=== PATIENT | female | born 1945 | race Caucasian/White ===

== ENCOUNTER 2024-04-25 14:41 | Emergency (ER) | payer OTHER, SELFPAY ==
[2024-04-25 14:48] VITALS: BP 147/96
[2024-04-25 15:18] LABS: % Basophils 0.9 % (0-2); % Eosinophils 0.9 % (0-6); % Immature Granulocytes 0.2 % (0-0.5); % Lymphocytes 33.6 % (20.5-51.1); % Monocytes 8.1 % (1.7-9.3); % Neutrophils 56.3 % (42.2-75.2); Absolute Basophils 0.1 10^3/uL (0-0.2); Absolute Eosinophils 0.1 10^3/uL (0-0.7); Absolute Lymphocytes 2.2 10^3/uL (1.2-3.4); Absolute Monocytes 0.5 10^3/uL (0.1-0.6); Absolute Neutrophils 3.7 10^3/uL (1.4-6.5); Hematocrit 40.2 % (37.0-47.0); Hemoglobin 14.6 g/dL (12.0-16.0); Mean Corp Hgb Conc. 36.3 g/dL (33.0-37.0); Mean Corpuscular Hgb 33.8 pg (27.0-31.0); Mean Corpuscular Volume 93.1 fL (81.0-99.0); Mean Platelet Volume 10.3 fL (7.4-10.4); Nucleated Red Blood Cells % 0 %; Platelet Count 159 10^3/uL (130-400); Red Blood Cell Count 4.32 10^6/uL (4.20-5.40); White Blood Cell Count 6.5 10^3/uL (4.8-10.8)
[2024-04-25 15:29] LABS: ALT (SGPT) 23 U/L (0-35); AST (SGOT) 32 U/L (14-36); Alkaline Phosphatase 73 U/L (38-126); Blood Urea Nitrogen 22 mg/dl (7-17); Calcium 10.8 mg/dl (8.4-10.2); Carbon Dioxide 26 mmol/L (22-30); Chloride 103 mmol/L (98-107); Glucose 143 mg/dl (70-99); Sodium 138 mmol/L (135-145); Total Bilirubin 0.7 mg/dl (0.2-1.3); Total Protein 7.4 g/dl (6.3-8.2); eGFR > 60.00
[2024-04-25 17:01] VITALS: BMI 25.8
--- NOTE | 2024-04-25 17:04 | EDRN ---
Pt went to urgent care and was sent to ED because her HR was elevated. Pt went to urgent care because she has been having loose bowel movements couple times per week where pt is unable to make it to the bathroom in time. This has been going on for
1-2 months. Pt did not go to her family doctor for symptoms. Last episode loose stool was this morning. No cp, sob, abd pain, n/v/d/c, fever/chills/cough, urinary symptoms, dizziness. Pt has felt generally weak since her in October
and she has not felt the same since.
[2024-04-25 17:11] VITALS: BP 128/92
--- NOTE | 2024-04-25 17:21 | ED.GENMED ---
History of Present Illness
General
Chief Complaint: Abdominal Symptoms
Source: patient
Exam Limitations: none
Time Seen by Provider: 04/25/24 16:57
History of Present Illness
History of Present Illness:
78-year-old female presents with loose stools intermittently over the past month. She states not just water that is clear there is brown-colored liquid sometimes at semiformed. No fevers. No abdominal pain. No chest pain or shortness of breath.
She states she lost her in the beginning of this year. She states her diet is changed. She is eating more frozen dinners now than what she used to. No blood in the stool. No other complaints at this time
Past History
Past History
ED Past Medical History: Hypercholesterolemia
Social History
Tobacco: Smoker
Alcohol: None
Personal:
Living: with family
Employment: Retired
Phy Exam
Physical Exam
Physical Exam:
General: Well-appearing female no acute respiratory distress
HEENT: Normocephalic atraumatic
Heart: Regular rate and rhythm no murmurs
Lungs: Clear no wheeze or rales
Abdomen soft nontender nondistended no guarding or rebound normal bowel
Extremities: No cyanosis or edema
Course
Orders/Labs/Results
Orders:
Orders
04/25/24 14:54
Complete Blood Count/With Diff Urgent
Comprehensive Metabolic Panel Urgent
04/25/24 17:20
0.9% Sodium Chloride 1000 ml [Nss] 1,000 ml IV BOLUS
Abnormal Lab Results
04/25/24
14:54
MCH 33.8 H pg
(27.0-31.0)
BUN 22 H mg/dl
(7-17)
Glucose 143 H mg/dl
(70-99)
Calcium 10.8 H mg/dl
(8.4-10.2)
04/25/24 14:54
04/25/24 14:54
Vital Signs
Initial and Last Documented VS:
Initial Vital Signs
Temp Pulse Resp BP Pulse Ox
98.4 F 120 16 147/96 98
04/25/24 14:48 04/25/24 14:48 04/25/24 14:48 04/25/24 14:48 04/25/24 14:48
Last Documented Vital Signs
Temp Pulse Resp BP Pulse Ox
98.4 F 72 16 116/68 94
04/25/24 14:48 04/25/24 18:00 04/25/24 17:11 04/25/24 18:00 04/25/24 18:00
MDM/Problems Addressed
Differential Diagnosis Includes:
Loose stool sometimes 2-3 times a day intermittently over the past month. No pain. No fever. Do not suspect infectious process. She is under quite a bit of stress recently losing her with a change in her life. Overall looks well. But
given frequency of stool will recommend IV fluids. Will ask for stool culture. If she is unable to provide sample, we will send her home with a kit.
*Critical Care Note
Total Time (30-74mins, 75-104mins- exclusive of procedures): Not Applicable
Update Note
Update Note:
Patient reevaluated still nontoxic. Patient was hydrated unable to give sample here. Will send patient home with outpatient kit. Stable for discharge. I do suspect stress and change of diet could be contributing towards her loose stools.
ED Attending Note
-
Portions of this chart may have been created with voice recognition software.� Occasional wrong word or��sound alike� substitutions may have occurred due to the inherent limitations of voice recognition software.
Discharge Plan
Departure
Patient Disposition: Home (Routine Discharge)
Date of Disposition: 04/25/24
Time of Disposition: 18:49
Patient with high blood pressure during this ER visit?: No
Discharge Problem:
Diarrhea
Instructions: Diarrhea in teens and adults
Prescriptions:
No Action
atorvastatin 20 mg Tablet
20 mg PO DAILY
alprazolam 1 mg Tablet
1 mg PO TID
duloxetine [Cymbalta] 30 mg Capsule,Delayed Release(Dr/Ec)
30 mg PO DAILY
Referrals:
Won Jewell MD [Family Provider] -
Activity Restrictions/Additional Instructions:
Stay hydrated. Consider Imodium or increasing your fiber. Return if worse otherwise follow-up with your doctor
Interventions
Interventions:
*Risk Screen - Suicide Last Done: 04/25/24 17:01
*General Assessment Last Done: 04/25/24 17:01
*Neglect/Abuse Screening Last Done: 04/25/24 17:01
ED- Fall Risk Assessment Last Done: 04/25/24 17:10
*ED COVID-19 Vaccine History Last Done: 04/25/24 17:01
HC-[facility]-Ypocuvhtgz Assessment Last Done: 04/25/24 17:10
Discharge Date and Time
Print Language: WOLOF
[2024-04-25] MEDS: NSS 1000 IV (17:27)
[2024-04-25 18:00] VITALS: BP 116/68
--- NOTE | 2024-04-25 18:37 | EDRN ---
Pt disconnected herself from monitoring equipment and came to doorway to inform staff her IVF is done and ask if someone will come in to removed the iv. Informed pt it will be removed when she is discharged - Chayo BALLESTEROS told pt he will be in to
speak with her.
== END 2024-04-25 18:54 | disposition home or self-care (01) ==
LOC: EMR 14:41
PROVIDERS: Emergency Medicine; EMERGENCY PHYSICIAN Student in an Organized Health Care Education/Training Program; FAMILY PHYSICIAN Internal Medicine
DX: R19.7 Diarrhea, unspecified (principal); F17.200 Nicotine dependence, unspecified, uncomplicated
CPT/HCPCS: 99283; 96360; 80053; 85025

== ENCOUNTER → 2024-09-03 10:15 | Outpatient (REF) | payer OTHER, SELFPAY | LOC: RAD 10:15 | PROVIDERS: ATTENDING PHYSICIAN Internal Medicine | DX: M79.674 Pain in right toe(s) (principal); M25.512 Pain in left shoulder | CPT/HCPCS: 73030; 73660 ==

== ENCOUNTER → 2024-11-06 10:27 | Outpatient (REF) | payer OTHER, SELFPAY | LOC: HWWDC 10:27 | PROVIDERS: ATTENDING PHYSICIAN Obstetrics & Gynecology Gynecology; FAMILY PHYSICIAN Internal Medicine | DX: Z12.31 Encounter for screening mammogram for malignant neoplasm of breast (principal) | CPT/HCPCS: 77063; 77067 ==